=== PATIENT | male | born 1980 | race African-American/Black ===

== ENCOUNTER 2017-10-06 13:35 | Emergency (ER) | payer SELFPAY ==
[~2017-10-06] VITALS: Ht 172.7 cm; Wt 69.0 kg
[2017-10-06 16:35] LABS: BG BASE EXCESS 1.6 mmol/L (-2.0-2.0); BG CARBOXYHEMOGLOBIN 0.6 % (0.5-1.5); BG DEOXYHEMOGLOBIN 2.5 % (0.0-5.0); BG FRACTION INSPIRED OXYGEN 21; BG HCO3 ACT 26.3 mmol/L (22.0-26.0); BG METHEMOGLOBIN 0.3 % (0.0-1.5); BG OXYGEN SATURATION 97.5 % (92.0-98.5); BG OXYHEMOGLOBIN 96.6 % (94.0-97.0); BG PCO2 41.5 mmHg (35.0-45.0); BG PH 7.419 (7.350-7.450); BG PO2 96.1 mmHg (75.0-100.0); BG SAMPLE SITE RIGHT RADIAL; BG TOTAL HEMOGLOBIN 16.4 g/dL (12.0-18.0); BG VENT MODE ROOM AIR
[2017-10-06 18:10] VITALS: BP 112/75
== END 2017-10-06 18:15 | disposition home or self-care (01) ==
LOC: ER 14:15
DX: Z00.00 Encounter for general adult medical examination without abnormal findings (principal)
CPT/HCPCS: 36600; 82375; 82805; 99283